=== PATIENT | female | born 1940 | race Caucasian/White ===

== ENCOUNTER 2018-02-03 21:54 | Inpatient (IN) ==
[2018-02-03 23:58] LABS: Basophils # (Auto) 0 K/mcL (0.0-0.3); Basophils % (Auto) 0.4 % (0.0-2.0); Eosinophils # (Auto) 0.2 K/mcL (0.0-0.7); Eosinophils % (Auto) 2.5 % (0.0-7.0); Lymphocytes # (Auto) 0.9 K/mcL (1.5-4.8); Lymphocytes % (Auto) 11.1 % (15.5-49.0); Mean Cell Volume 89.8 fL (80.0-100.0); Mean Corpuscular HGB Conc 32.7 g/dL (31.0-36.0); Mean Corpuscular Hemoglobin 29.4 pg (26.0-34.0); Monocytes # (Auto) 0.5 K/mcL (0.1-0.9); Platelet Count 277 K/mcL (140-440); RBC 4.15 M/mcL (4.00-5.20); Red Cell Distribution Width 13.4 % (11.5-14.5)
[2018-02-04 00:11] LABS: ALT/SGPT 20 U/l (0-40); Albumin 3.8 gm/dL (3.2-5.2); Albumin/Globulin Ratio 1.7 (1.0-2.3); Alkaline Phosphatase 111 U/L (39-117); Appearance,Urine CLEAR; Bilirubin,Urine NEG (NEG); Blood Urea Nitrogen 16 mg/dl (8-23); Color,Urine YELLOW; Glucose,Urine (UA) NEGATIVE (NEG); Leukocyte Esterase,Urine NEG /uL (NEG); Protein,Urine NEG (NEG); Urine Blood NEG mg/dL (<0.03); Urobilinogen,Urine NEG (NEG)
[2018-02-04] MEDS ORDERED: ONDANSETRON 4 MG/2 ML VIAL IV PRN ×2 (00:29→17:12)
[2018-02-04] MEDS ORDERED: NALOXONE HCL 0.4 MG/ML VIAL IV PRN (00:29)
[2018-02-04] MEDS ORDERED: DEXTROSE 50% 50 ML VIAL IV PRN (00:29)
[2018-02-04] MEDS ORDERED: oxyCODONE HCL 5 MG TABLET PO PRN (00:29)
[2018-02-04] MEDS ORDERED: NACL 0.9% W/KCL 20MEQ 1,000 ML IV SCH (00:30)
[2018-02-04] MEDS: HEPARIN 5,000 UNIT/ML VIAL SQ SCH ×3 (00:50→22:03)
[2018-02-04] MEDS: HYDROmorphone 2 MG/ML VIAL IV PRN ×3 (01:53→22:20)
[2018-02-04] MEDS: 0.9 % SODIUM CHLORIDE 10 ML SYRINGE IV SCH ×3 (05:03→22:03)
[2018-02-04] MEDS: INSULIN LISPRO 1 UNIT/0.01 ML UNIT SQ SCH ×3 (05:03→16:25)
--- NOTE | 2018-02-04 07:30 | Emergency Department Note ---
Fall HPI - General Chief Complaint: Fall Stated Complaint: fall Time Seen by Provider: 02/03/18 22:45 Source: family, EMS Mode of arrival: EMS - History of Present Illness HPI Narrative: This patient tripped and fell this evening and injured her right hip. Did not hit her head denies neck pain no other symptoms. Her previous right hip replacement in with Dr. Wilder. - Related Data Allergies Allergy/AdvReac Type Severity Reaction Status Date / Time codeine AdvReac Intermediate Vomiting Verified 02/04/18 01:44 Review of Systems All systems ED: reviewed and negative except as stated. Fall PMH - Past Medical History Medical history: Reports: DM, hypertension - Social History smoking status: Never smoker Physical Exam She does have some tenderness about the right hip. Limitations: no limitations General appearance: alert Head: atraumatic Eye: Present: normal appearance ENT: normal exam Neck: Present: normal inspection Chest: Present: normal inspection Respiratory: Present: normal lung sounds bilaterally Cardiovascular: Present: regular rate, normal rhythm, normal heart sounds Abdominal: Present: soft. Absent: distention, tenderness Neurological: Present: alert Psychiatric: Present: normal affect, normal mood Skin: Present: warm, dry, intact Course Vital Signs Temperature 98.2 F 02/03/18 21:55 Pulse Rate 114 H 02/03/18 21:55 Respiratory Rate 19 02/03/18 21:55 Blood Pressure 160/76 02/03/18 21:55 Pulse Oximetry (%) 92 02/03/18 21:55 Temperature 98.2 F 02/04/18 04:00 Pulse Rate 109 H 02/04/18 05:27 Respiratory Rate 20 02/04/18 05:27 Blood Pressure 122/76 02/04/18 04:00 Pulse Oximetry (%) 93 02/04/18 05:27 Fall - MDM Narrative Medical decision making narrative: Patient's x-ray shows a periprosthetic fracture of the femur on the right side. - Lab Data Lab results reviewed: Yes I reviewed the patient's lab results. Result diagrams: 02/03/18 23:10 02/03/18 23:10 Lab Results 02/03/18 02/03/18 02/03/18 Range/Units 23:10 23:10 23:10 WBC 8.0 (4.5-11.0) K/mcL RBC 4.15 (4.00-5.20) M/mcL Hgb 12.2 (12.0-15.0) g/dL Hct 37.3 (36.0-48.0) % MCV 89.8 (80.0-100.0) fL MCH 29.4 (26.0-34.0) pg MCHC 32.7 (31.0-36.0) g/dL RDW 13.4 (11.5-14.5) % Plt Count 277 (140-440) K/mcL MPV 8.2 (7.4-10.4) fL Gran % 80.0 H (38.0-78.0) % Lymph % (Auto) 11.1 L (15.5-49.0) % [place]ila % (Auto) 6.0 (1.0-12.0) % Eos % (Auto) 2.5 (0.0-7.0) % Baso % (Auto) 0.4 (0.0-2.0) % Gran # 6.4 (1.8-8.0) K/mcL Lymph # (Auto) 0.9 L (1.5-4.8) K/mcL [place]ila # (Auto) 0.5 (0.1-0.9) K/mcL Eos # (Auto) 0.2 (0.0-0.7) K/mcL Baso # (Auto) 0 (0.0-0.3) K/mcL Sodium 133 (133-145) mmol/L Potassium 3.5 (3.3-5.1) mmol/L Chloride 96 (96-108) mmol/L Carbon Dioxide 26 (22-30) mmol/L Anion Gap 11.0 (8-16) BUN 16 (8-23) mg/dl Creatinine 0.8 (0.6-1.1) mg/dl GFR Calculation 70 Glucose 156 H (70-105) mg/dL Calcium 10.2 (8.6-10.4) mg/dl Total Bilirubin 0.3 (0.0-1.0) mg/dL AST 19 (0-37) U/l ALT 20 (0-40) U/l Alkaline Phosphatase 111 (39-117) U/L Total Protein 6.1 (5.9-8.4) gm/dL Albumin 3.8 (3.2-5.2) gm/dL Globulin 2.3 (2.2-3.7) gm/dL Albumin/Globulin Ratio 1.7 (1.0-2.3) Urine Color Yellow Urine Appearance Clear Urine pH 7.0 (5.0-9.0) Ur Specific [place] 1.010 (1.000-1.035) Urine Protein Neg (NEG) mg/dL Urine Glucose (UA) Negative (NEG) mg/dL Urine Ketones Neg (NEG) mg/dL Urine Occult Blood Neg (<0.03) mg/dL Urine Nitrate Neg (NEG) Urine Bilirubin Neg (NEG) mg/dL Urine Urobilinogen Neg (NEG) mg/dL Ur Leukocyte Esterase Neg (NEG) /uL Ur Culture Indicated? No - Radiology Data Radiology results reviewed: Yes I reviewed the patient's radiology results. Disposition Pt seen by [employer] CONSULTANT/PA only: No Clinical Impression: Hip fracture requiring operative repair Disposition: Xfer As Inpt ([facility]) Condition: Good
[2018-02-04] MEDS: DOCUSATE SODIUM 100 MG CAPSULE PO SCH ×2 (07:37→22:03)
--- NOTE | 2018-02-04 08:19 | XRay Report ---
HISTORY: Reason for Exam:pain with right hip injury FINDINGS: There is an acute obliquely oriented subtrochanteric fracture of the proximal right femur. There is mild angulation and up to 8 mm displacement. The right total hip prosthesis is well-positioned and there is no dislocation or reabsorption of bone around the hardware. Severe osteoarthritis is present in the left hip and there is severe degenerative disc disease and arthritis at L4-5 and L5-S1. IMPRESSION: Acute subtrochanteric fracture of the proximal right femur Interpreted and Authenticated by: Dewayne Washington 02/04/18
--- NOTE | 2018-02-04 08:21 | XRay Report ---
HISTORY: Reason for Exam:pre-op for hip fracture FINDINGS: Lungs are clear. The heart size and pulmonary vasculature are normal. Aorta is mildly tortuous. The mediastinum and roderick are otherwise normal. Arthritis is present in both shoulders as well as the thoracic spine. IMPRESSION: Normal exam Interpreted and Authenticated by: Dewayne Washington 02/04/18
--- NOTE | 2018-02-04 10:15 | Consultation ---
DATE OF CONSULTATION: 02/04/2018 IDENTIFICATION: The patient is a 77-year-old female. CHIEF COMPLAINT: Right periprosthetic femur fracture. Her complaints are, of course, pain and inability to stand and bear weight. HISTORY: The patient had a total hip arthroplasty on this right side by Dr. Ramsey in 2005 and did very well. Yesterday she had a non-syncopal fall, had immediate pain and inability to bear weight. She presented to the hospital, was evaluated by Dr. Gabriel Murray and radiographs have demonstrated a fracture in and about the prosthesis. She presently is at bed rest. Any motion causes significant pain, but she is generally comfortable when not moving and is in no acute distress. PAST MEDICAL HISTORY: Significant for hypertension and diabetes mellitus type 2. PAST SURGICAL HISTORY: Noncontributory to this problem. REVIEW OF SYSTEMS: Her 10-point review of systems has been negative. She has been in a generally good state of health. Her primary care physician is Dr. Moran. FAMILY HISTORY: Again, noncontributory to this problem at age 77. PHYSICAL EXAMINATION: GENERAL: Awake and alert. She is in no acute distress. HEAD: Normocephalic, atraumatic. EYES: PERRLA. Conjunctivae clear. ENT: Within normal limits. NECK: Supple without pain on range of motion. HEART: Regular. LUNGS: Clear bilaterally. ABDOMEN: Soft, nondistended and nontender. LOWER EXTREMITIES: Her right lower extremity is carefully positioned and any motion does produce pain. She does have seemingly normal motor and sensory function distally. She does not have excess edema, although she is heavy. Her weight is 220, BMI 40, and she is generally heavy but does not seem to have a lot of pitting edema bilaterally. Again, neurovascularly intact bilaterally. IMAGING: Radiographs demonstrate a fracture which is periprosthetic of the right femur. It involves the femoral shaft. There is a large lateral butterfly fragment, and this is an unstable fracture about this prosthesis. IMPRESSION: Comminuted right periprosthetic femur fracture. PLAN: We have reviewed treatment options with the patient. I do think that this is a fracture which is best managed with surgical intervention and stabilization. The goal, of course, would be to get her up and ambulatory again. We have reviewed the procedure risks, complications and limitations. She would like to proceed, and we will try and do this as soon as possible. SYL:hodan Job ID: [id number] Doc ID: [id number] Sreekanth Jimenez MD
--- NOTE | 2018-02-04 11:11 | Internal Med History&Physical ---
Medical - H&P: HPI Patient information: Note initiated : 02/04/18 at 11:08 am Service Date, if different from initiated Date: [] Patient: Maria De Jesus Lobo 77 y/o F admitted on 02/04/18 for fall ORIF Right Felicity Prosthetic Fracture. Chief Complaint: [] History of present illness: Ms. Lobo is a 77 year old Female with h/o dm, htn, hld, presented to the ER last night s/p mechanical fall The patient notes that she was trying to turn around and tripped and fell. She denies any injury to her head, denies any syncope or presyncope like symptoms, denies any palpitations before the fall. No loss of bowel bladder continence. After the fall she had severe pain in the right hip and thought she had broken something and therefore presented to the emergency room. The patient denies any headache fever cough chest pain shortness of breath nausea vomiting urinary symptoms or any other concerns before she had this fall. In the emergency room the patient had an x-ray done which showed a fracture of the right femur. The patient has a prosthesis already on the right side. Dr. Jimenez will be performing the surgery on this patient and had been notified by the emergency. Patient is being admitted to the hospitalist service. The patient notes that she has poor effort tolerance, has balance issues and uses a walker. The most she walks is outside her house to get her mail. Even then she gets short of breath and has to stop in between. She denies any chest pain or shortness of breath during these walks. The patient denies any acute edema feet but does have intermittent waxing and waning edema feet. The patient denies any history of heart failure, denies any history of heart attack strokes or kidney failure. She does have a history of diabetes but is not on insulin. She is not an active smoker. She has had surgeries done in the past and has had nausea postoperatively but no other acute complication. Denies any easy bruising or excessive bleeding at this time. HOme meds as per last recent visit to urgent care Medication Instructions Start Date Stop Date Generic Name NDC Provider ADULT ASPIRIN EC LOW STRENGTH 81 MG TBEC 2 po daily ASPIRIN 55853181587 Abbe Mary [facility] ADMINISTRATIVE ASSISTANT-C GLUCOPHAGE 500 MG TABS 1 po BID METFORMIN HCL [id number] Abbe Mary [facility] ADMINISTRATIVE ASSISTANT-C METOPROLOL SUCCINATE ER 50 MG [id number] 1 po qd METOPROLOL SUCCINATE [id number] Abbe Mary NP-C HYDROCHLOROTHIAZIDE 25 MG TABS 1 po qd HYDROCHLOROTHIAZIDE [id number] Abbe Mary NP-C KLOR-CON 10 10 MEQ CR-TABS All systems: reviewed and no additional remarkable complaints except as stated ( 10 Point review of system done, positive as per HPI rest is negative) Medical - H&P: PMH Medical history: DM HTN HLD BPPV Medical - H&P: Meds Allergies Allergy/AdvReac Type Severity Reaction Status Date / Time codeine AdvReac Intermediate Vomiting Verified 02/04/18 01:44 Medical - H&P: Exam - Constitutional Vitals: Temp Pulse Resp BP Pulse Ox 97.7 F 112 H 20 106/67 95 02/04/18 08:00 02/04/18 08:00 02/04/18 08:00 02/04/18 08:00 02/04/18 08:00 Exam: GENERAL: The patient is a well-developed, well-nourished in no apparent distress. Is alert and oriented x3. VITAL SIGNS: Reviewed and as noted elsewhere. HEENT: Head is normocephalic and atraumatic. Extraocular muscles are intact. Pupils are equal, round, and reactive to light. Nares appeared normal. Mouth appears any without lesions. Mucous membranes are moist. NECK: Normal to inspection, Supple, No lymphadenopathy or thyromegaly. LUNGS: Air entry equal on both sides, no wheezing, crackles or rhonchi noted. No accessory muscles of respiration HEART: Regular rate and rhythm normal, S1 and S2 heard, no Gallop, S3 or Rub Noted, No Gross murmur heard. ABDOMEN: Soft, nontender, and nondistended. Positive bowel sounds. No hepatosplenomegaly was noted. EXTREMITIES: No cyanosis, clubbing, rash, lesions or edema. NEUROLOGIC: Cranial nerves II through XII are grossly intact. Motor and Sensory System Grossly Intact PSYCHIATRIC: Normal affect, Normal Mood. Appropriate Behavior. SKIN: No ulceration or wounds noted, No jaundice, No rash noted. Medical - H&P: Reslt - Labs CBC & Chem 7: 02/03/18 23:10 02/03/18 23:10 Labs: Short CBC 02/03/18 Range/Units 23:10 WBC 8.0 (4.5-11.0) K/mcL Hgb 12.2 (12.0-15.0) g/dL Hct 37.3 (36.0-48.0) % Plt Count 277 (140-440) K/mcL BMP 02/03/18 23:10 Sodium 133 Potassium 3.5 Chloride 96 Carbon Dioxide 26 BUN 16 Creatinine 0.8 Glucose 156 H Calcium 10.2 Liver Function 02/03/18 Range/Units 23:10 Total Bilirubin 0.3 (0.0-1.0) mg/dL AST 19 (0-37) U/l ALT 20 (0-40) U/l Alkaline Phosphatase 111 (39-117) U/L Albumin 3.8 (3.2-5.2) gm/dL Urine 02/03/18 Range/Units 23:10 Urine Color Yellow Urine Appearance Clear Urine pH 7.0 (5.0-9.0) Ur Specific [place] 1.010 (1.000-1.035) Urine Protein Neg (NEG) mg/dL Urine Glucose (UA) Negative (NEG) mg/dL Medical - H&P: A/P - Narrative A/P Narrative: A/p Periprosthetic Fracture: Management as per ortho Pre Op eval: Stable EKG, left axis, lafb, sinus rhythm, no acute ST wave changes , CXR no acute changes. no acute cardiovascular instability. RCRI is 0, but pt does have HTN, DM (not on insulin), poor effort tolerance and advanced age, this would make her moderate to high risk, but there are no modifiable risk factors to address before this urgent/ emergent surgery. Reviewed her risks with her. Pt verbalized understanding. DM: hold oral meds, sidling scale insulin for now, monitor glucose HTN: Resume home bp meds after surgery, pt on hctz which needs to be held prior to surgery DVT - hep sq Diet npo for now Full code. Medical - H&P: Qual - VTE Deep Vein Thrombosis/Pulmonary Embolism Present on Admission: No
[2018-02-04] MEDS ORDERED: ceFAZolin 1 GM VIAL ONE (15:14)
[2018-02-04] MEDS ORDERED: ceFAZolin 1 GM VIAL IV SCH (15:15)
[2018-02-04] MEDS ORDERED: PROPOFOL 200 MG/20 ML VIAL IV ONE (15:45)
[2018-02-04] MEDS ORDERED: PHENYLEPHRINE 10 MG/ML VIAL IV ONE (15:45)
[2018-02-04] MEDS ORDERED: TRANEXAMIC ACID 1,000 MG/10 ML VIAL IV ONE ×2 (15:45→17:10)
[2018-02-04] MEDS ORDERED: GLYCOPYRROLATE 0.2 MG/ML VIAL IV ONE (15:45)
[2018-02-04] MEDS ORDERED: MIDAZOLAM 2 MG/2 ML VIAL IV ONE (15:45)
[2018-02-04] MEDS ORDERED: LIDOCAINE HCL/PF 100 MG/5 ML SYRINGE IV ONE (15:45)
[2018-02-04] MEDS ORDERED: ePHEDrine 50 MG/ML AMPUL IV ONE (15:45)
[2018-02-04] MEDS ORDERED: KETAMINE 100 MG/ML ML IV ONE (15:45)
[2018-02-04] MEDS ORDERED: fentaNYL 100 MCG/2 ML VIAL IV ONE (15:45)
[2018-02-04] MEDS ORDERED: GENTAMICIN SULFATE 800 MG/20 ML VIAL IR ONE (16:50)
[2018-02-04] MEDS ORDERED: IPRATROPIUM/ALBUTEROL 3 ML AMPUL.NEB NEB PRN (17:12)
[2018-02-04] MEDS ORDERED: fentaNYL 100 MCG/2 ML VIAL IV PRN (17:12)
[2018-02-04] MEDS ORDERED: MEPERIDINE 25 MG/ML SYRINGE IV PRN (17:12)
[2018-02-04] MEDS ORDERED: METHOCARBAMOL 1,000 MG/10 ML VIAL IV PRN (17:12)
[2018-02-04] MEDS ORDERED: ACETAMINOPHEN 1,000 MG/100 ML BOTTLE IV ONE (17:12)
[2018-02-04] MEDS ORDERED: LACTATED RINGERS 1,000 ML IV SCH (17:15)
[2018-02-04] MEDS ORDERED: HETASTARCH 6% 30 GM/500 ML BAG IV ONE (18:30)
[2018-02-04] MEDS ORDERED: traMADol 50 MG TABLET PO PRN (19:03)
--- NOTE | 2018-02-04 19:16 | Brief Operative Note ---
Date of procedure: 02/04/18 Pre-op diagnosis: periprosthetic femur fracutre Post-op diagnosis: same Procedure: orif Grafts/Implants: Yes Anesthesia: GETA Complications: none Surgeon: Sreekanth Jimenez Quality Control Tech Raw Materials: Chandra Childers Estimated blood loss (cc): 250 Specimens Removed/Pathology: none sent Condition: stable Disposition: PACU
[2018-02-05] MEDS: INSULIN LISPRO 1 UNIT/0.01 ML UNIT SQ SCH ×5 (01:08→21:36)
[2018-02-05] MEDS: 0.9 % SODIUM CHLORIDE 10 ML SYRINGE IV SCH ×3 (05:46→21:36)
--- NOTE | 2018-02-05 08:33 | Orthopedic Progress Note ---
Subjective Patient information: Note initiated : 02/05/18 at 8:30 am Service Date, if different from initiated Date: [] Patient: Maria De Jesus Lobo 77 y/o F admitted on 02/04/18 for fall ORIF Right Felicity Prosthetic Fracture. Chief Complaint: [S/P ORIF of right periprosthetic femur fx] Patient is doing well. No particular complaints. Denies any chest pain, SOA, or calf tenderness. Objective Vital signs: Vital Signs Temp Pulse Resp BP BP Pulse Ox 02/05/18 07:41 106 H 18 95 02/05/18 07:40 98.1 F 18 131/67 95 02/05/18 03:47 97.7 F 118 H 18 126/79 92 02/05/18 00:00 98.1 F 108 H 16 149/81 94 02/04/18 22:00 113 H 126/79 95 02/04/18 21:30 107 H 101/68 94 02/04/18 21:00 111 H 123/78 95 02/04/18 20:30 110 H 118/73 95 02/04/18 20:16 110 H 118/75 95 02/04/18 20:01 105 H 115/72 94 02/04/18 19:46 110 H 18 118/69 96 02/04/18 19:30 97.6 F 114 H 18 117/70 98 02/04/18 19:16 97.4 F 108 H 21 127/62 97 02/04/18 18:52 108 H 17 124/59 96 02/04/18 18:37 110 H 22 99/65 99 02/04/18 18:22 112 H 18 97/50 94 02/04/18 18:07 116 H 18 101/54 92 02/04/18 17:52 122 H 19 108/52 98 02/04/18 17:37 98.5 F 109 H 19 123/54 98 02/04/18 11:40 98.1 F 112 H 20 136/77 97 Intake and Output 02/04/18 02/05/18 02/05/18 21:59 05:59 13:59 Intake Total 2500 / 2500 100 / 100 Output Total 400 / 400 375 / 375 Balance 2099 / 2099 -275 / -275 Intake: IV 600 / 600 Oral 200 / 200 100 / 100 IV - Manual Only 1700 / 1700 Output: Urine Catheter Amount 150 / 150 350 / 350 Emesis 25 / 25 Estimated Blood Loss 250 / 250 Other: Weight 219 lb Intake & Output: Intake & Output 02/04/18 02/05/18 02/05/18 21:59 05:59 13:59 Intake Total 2500 / 2500 100 / 100 Output Total 400 / 400 375 / 375 Balance 2099 / 2099 -275 / -275 Weight 219 lb Intake: IV 600 / 600 Oral 200 / 200 100 / 100 IV - Manual Only 1700 / 1700 Output: Urine Catheter Amount 150 / 150 350 / 350 Emesis 25 / 25 Estimated Blood Loss 250 / 250 Incision: Yes healing, Yes clean and dry Incision clean and dry: Yes Dressing: Yes clean, Yes dry, Yes intact Weight bearing status: non (NWB on RLE) Neurological exam IM: Yes oriented X3, Yes motor sensory intact, Yes neurovascular intact Extremities exam IM: Yes neurovascular intact Additional Comments: Negative Izzy's sign bilaterally, no calf tenderness - Labs CBC & BMP: 02/03/18 23:10 02/03/18 23:10 Labs: 02/03/18 23:10 Hgb 12.2 Hct 37.3 Assessment and Plan (1) Hip fracture requiring operative repair Patient will remain NWB on the RLE for 6-8 weeks. Likely discharge to [facility] in 2 days. Status: Acute
[2018-02-05] MEDS: DOCUSATE SODIUM 100 MG CAPSULE PO SCH ×2 (08:50→21:35)
[2018-02-05] MEDS: HEPARIN 5,000 UNIT/ML VIAL SQ SCH ×2 (08:50→21:35)
[2018-02-05] MEDS: ACETAMINOPHEN 325 MG TABLET PO PRN ×3 (08:50→21:37)
[2018-02-05] MEDS: HYDROCHLOROTHIAZIDE 25 MG TABLET PO SCH (08:51)
[2018-02-05] MEDS: LOSARTAN 50 MG TABLET PO SCH (08:51)
[2018-02-05] MEDS: metFORMIN 500 MG TABLET PO SCH ×2 (08:51→17:35)
[2018-02-05] MEDS: LISINOPRIL 20 MG TABLET PO SCH (08:51)
--- NOTE | 2018-02-05 11:01 | Operative Note ---
DATE OF OPERATION: 02/04/2018 PREOPERATIVE DIAGNOSIS: Comminuted right periprosthetic hip/femur fracture. POSTOPERATIVE DIAGNOSIS: Comminuted right periprosthetic hip/femur fracture. OPERATION PROPOSED: Open reduction and internal fixation of periprosthetic femur fracture. OPERATION PERFORMED: Open reduction and internal fixation of periprosthetic femur fracture. OPERATING SURGEON: Sreekanth Jimenez M.D. FOUNTAIN PEN TURNER: Chandra Childers PA-C. INDICATIONS: This is an elderly lady with a comminuted fracture about a right hip prosthesis. We have elected to proceed with open reduction and internal fixation with a plate and screw, as well as a cable construct. OPERATION IN DETAIL: Informed consent was obtained. The patient was taken to the operating room where she was provided the appropriate anesthetic and prophylactic antibiotics. She was carefully positioned. Her right lower extremity was prepped sterilely. A lateral incision was performed. I dissected through the iliotibial band. The fascia of the vastus lateralis was scored. I dissected posteriorly on the muscle and then slipped a Carr retractor up and over the lateral aspect of the femur. Vascular perforators were coagulated. The lateral surface of the femur was exposed, exposing the fracture. The best possible reduction was performed, and I placed a bone holding clamp. I selected a lateral plate from [employer]. This was held into position, and again the bone holding clamp was applied around the plate. I placed a single distal screw in the plate, and then we worked proximally and placed several cables that were provisionally tightened. The reduction was again checked and the best possible reduction obtained. I tightened the cables. I placed additional distal locking screws. There were several unicortical screws placed at the level of the prosthesis. I placed four proximal cables that were tightened and locked into position. The wounds were irrigated extensively and closed with a 0 Vicryl running in the fascia of the vastus lateralis. IT band was also closed with a Stratafix suture. The skin was closed with 2-0 inverted and urban. The procedure was tolerated well. No complications. Estimated blood loss was 250 mL. GDD:hodan Job ID: [id number] Doc ID: [id number] Sreekanth Jimenez MD
--- NOTE | 2018-02-05 13:40 | Internal Med Progress Note ---
Medical - PN: Subj Patient information: Note initiated : 02/05/18 at 1:34 pm Service Date, if different from initiated Date: [] Patient: Maria De Jesus Lobo a 77 y/o F admitted on 02/04/18 for fall ORIF Right Felicity Prosthetic Fracture. Chief Complaint: [] Interval history: Ms. Lobo is a 77 year old Female with h/o dm, htn, hld, presented to the ER last night s/p mechanical fall The patient notes that she was trying to turn around and tripped and fell. She denies any injury to her head, denies any syncope or presyncope like symptoms, denies any palpitations before the fall. No loss of bowel bladder continence. After the fall she had severe pain in the right hip and thought she had broken something and therefore presented to the emergency room. The patient denies any headache fever cough chest pain shortness of breath nausea vomiting urinary symptoms or any other concerns before she had this fall. In the emergency room the patient had an x-ray done which showed a fracture of the right femur. The patient has a prosthesis already on the right side. Dr. Jimenez will be performing the surgery on this patient and had been notified by the emergency. Patient is being admitted to the hospitalist service. The patient notes that she has poor effort tolerance, has balance issues and uses a walker. The most she walks is outside her house to get her mail. Even then she gets short of breath and has to stop in between. She denies any chest pain or shortness of breath during these walks. The patient denies any acute edema feet but does have intermittent waxing and waning edema feet. The patient denies any history of heart failure, denies any history of heart attack strokes or kidney failure. She does have a history of diabetes but is not on insulin. She is not an active smoker. She has had surgeries done in the past and has had nausea postoperatively but no other acute complication. Denies any easy bruising or excessive bleeding at this time. 5/4 Seen and examined, sitting comfortably in the chair, daughter and granddaughter by the bedside. She has no acute complaints or concerns. She has pain at the site of surgery which is expected. Otherwise no other issues. She denies any chest pain shortness of breath nausea vomiting. She does note that she has having difficulty in moving her bowels and was using Metamucil at home. Pertinent ROS: Denies headache, dizziness Denies chest pain, palpitations Denies cough or shortness of breath Denies abdominal pain, nausea or vomiting. - Constitutional Vitals: Vital Signs Temp Pulse Resp BP Pulse Ox 98.7 F 106 H 18 121/76 95 02/05/18 11:55 02/05/18 07:41 02/05/18 11:55 02/05/18 11:55 02/05/18 11:55 Period Temp Pulse Resp BP Sys/Cuellar Pulse Ox Last 24 Hr 97.4 F-98.7 F 105-122 16-22 97-149/50-81 92-99 Intake and Output 02/04/18 02/05/18 02/05/18 21:59 05:59 13:59 Intake Total 2500 / 2500 100 / 100 1000 / 1000 Output Total 400 / 400 375 / 375 400 / 400 Balance 2100 / 2100 -275 / -275 600 / 600 Weight 219 lb Intake & Output: Intake & Output 02/04/18 02/05/18 02/05/18 21:59 05:59 13:59 Intake Total 2500 / 2500 100 / 100 1000 / 1000 Output Total 400 / 400 375 / 375 400 / 400 Balance 2100 / 2100 -275 / -275 600 / 600 Weight 219 lb Intake: IV 600 / 600 Oral 200 / 200 100 / 100 800 / 800 GI Tube Flush 200 / 200 IV - Manual Only 1700 / 1700 Output: Urine Catheter Amount 150 / 150 350 / 350 400 / 400 Emesis 25 / 25 Estimated Blood Loss 250 / 250 Other: Meal Lunch Percent of Meal Consumed 25% Feeding Ability Independent Exam: Constitutional; Afebrile, cooperative, alert, not in distress. Eyes- No icterus, , No periorbital swelling Ears- Ext ear normal, hearing normal to conversation. Neck- Midline trachea, supple Respiratory system: Air Entry equal on both sides, No crackles or wheezing, no rhonchi. CVS- Rate rhythm regular, S1,S2 heard, no gallop, no rub. 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 Medical - PN: Obj Da - Labs CBC & Chem 7: 02/03/18 23:10 02/03/18 23:10 Labs: Abnormal Lab Results 02/03/18 02/03/18 23:10 23:10 Gran % 80.0 H Lymph % (Auto) 11.1 L Lymph # (Auto) 0.9 L Glucose 156 H Meds: Medications Acetaminophen (Tylenol) 650 mg PO Q6HP PRN PRN Reason: PAIN/FEVER > 101 Last Admin: 02/05/18 08:50 Dose: 650 mg Dextrose (Dextrose 50%) 0 ml IV UD PRN PRN Reason: Hypoglycemia Diagnostic Test (Pha) (Accu-Chek) 1 each [facility] Docusate Sodium (Colace) 100 mg PO BID [facility] Last Admin: 02/05/18 08:50 Dose: 100 mg Heparin Sodium (Porcine) (Heparin) 5,000 unit SQ Q12 [facility] Last Admin: 02/05/18 08:50 Dose: 5,000 unit Hydrochlorothiazide (Oretic) 25 mg PO DAILY [facility] Last Admin: 02/05/18 08:51 Dose: 25 mg Hydromorphone HCl (Dilaudid) 0.5 - 1 mg IV Q2HP PRN PRN Reason: PAIN LEVEL > 6 Last Admin: 02/04/18 22:20 Dose: 0.5 mg Insulin Human Lispro (Humalog) 0 unit SQ [facility] PRN Reason: Protocol Lisinopril (Zestril) 20 mg PO DAILY [facility] Last Admin: 02/05/18 08:51 Dose: 20 mg Losartan Potassium (Cozaar) 50 mg PO DAILY [facility] Last Admin: 02/05/18 08:51 Dose: 50 mg [facility] Last Admin: 02/05/18 08:51 Dose: 500 mg Naloxone HCl (Narcan) 0.1 mg IV Q2MIN PRN PRN Reason: Opiate Reversal Ondansetron HCl (Zofran) 4 mg IV Q6HP PRN PRN Reason: Nausea And Vomiting Last Admin: 02/05/18 03:07 Dose: 4 mg Oxycodone HCl (Roxicodone) 5 mg PO Q4HP PRN PRN Reason: PAIN LEVEL 3-6 Sodium Chloride (Saline Flush) 10 ml IV Q8 [facility] Last Admin: 02/05/18 05:46 Dose: 10 ml Tramadol HCl (Ultram) 50 - 100 mg PO Q4-6HP PRN PRN Reason: Pain Medical - PN: A/P - Time Spent With Patient Total time spent is greater than 50% in coordination of care (as documented) at patient's floor/unit and/or counseling patient: - Narrative A/P Narrative: A/p Periprosthetic Fracture: Management as per ortho DM: Resume metformin, sliding scale insulin to continue glucose at goal. HTN: Pressure medication hydrochlorthiazide resume, blood pressure at goal. Continue same DVT - hep sq Diet carb consistent diet. Full code. Medical - PN: Qual - VTE Deep Vein Thrombosis/Pulmonary Embolism Present on Admission: No
[2018-02-05] MEDS: PSYLLIUM HUSK 6 GM PACKET PO SCH (13:58)
[2018-02-05] MEDS ORDERED: BENZOCAINE/MENTHOL 1 LOZENGE PO PRN (14:00)
[2018-02-05] MEDS ORDERED: BENZOCAINE/MENTHOL 1 LOZENGE PO ONE (14:06)
[2018-02-06] MEDS: ACETAMINOPHEN 325 MG TABLET PO PRN ×2 (05:46→18:34)
[2018-02-06] MEDS: 0.9 % SODIUM CHLORIDE 10 ML SYRINGE IV SCH ×3 (05:47→20:22)
[2018-02-06] MEDS: INSULIN LISPRO 1 UNIT/0.01 ML UNIT SQ SCH ×4 (08:00→20:21)
[2018-02-06] MEDS: metFORMIN 500 MG TABLET PO SCH ×2 (08:19→18:35)
[2018-02-06] MEDS: LISINOPRIL 20 MG TABLET PO SCH (08:19)
[2018-02-06] MEDS: LOSARTAN 50 MG TABLET PO SCH (08:19)
[2018-02-06] MEDS: HEPARIN 5,000 UNIT/ML VIAL SQ SCH ×2 (08:19→20:21)
[2018-02-06] MEDS: PSYLLIUM HUSK 6 GM PACKET PO SCH ×2 (08:19→09:00)
[2018-02-06] MEDS: HYDROCHLOROTHIAZIDE 25 MG TABLET PO SCH (08:19)
[2018-02-06] MEDS: DOCUSATE SODIUM 100 MG CAPSULE PO SCH ×2 (08:20→20:22)
--- NOTE | 2018-02-06 11:15 | Orthopedic Progress Note ---
Orthopedics - Auxillary Note - Subjective Patient Information: Note initiated : 02/06/18 at 11:14 am Service Date, if different from initiated Date: [] Patient: Maria De Jesus Lobo 77 y/o F admitted on 02/04/18 for fall ORIF Right Felicity Prosthetic Fracture. Chief Complaint: Mild to moderate pain bandages c/d/i nvi-distal Vital Signs Temp Pulse Resp BP BP Pulse Ox 02/06/18 08:00 97.9 F 18 113/60 96 02/06/18 04:00 98.8 F 103 H 20 148/73 91 02/05/18 23:27 98.2 F 112 H 20 127/70 93 02/05/18 20:00 98.3 F 115 H 22 153/73 97 02/05/18 15:50 99.1 F H 18 118/62 96 02/05/18 11:55 98.7 F 18 121/76 95 Intake and Output 02/05/18 02/06/18 02/06/18 21:59 05:59 13:59 Intake Total 520 / 520 300 / 300 Output Total 350 / 350 1250 / 1250 Balance 170 / 170 -950 / -950 Intake: Oral 120 / 120 300 / 300 GI Tube Flush 400 / 400 Output: Urine Catheter Amount 350 / 350 1250 / 1250 Other: Meal Dinner Percent of Meal Consumed 100% Feeding Ability Independent Stool Size Large Stool Color Brown Stool Consistency Soft # Bowel Movements 1 Weight 224 lb 8 oz s/p R femur ORIF for periprosthetic hip fx-stable mobilize with PT; tentative discharge for Thursday02/08/18
--- NOTE | 2018-02-06 13:00 | Internal Med Progress Note ---
Medical - PN: Subj Patient information: Note initiated : 02/06/18 at 12:59 pm Service Date, if different from initiated Date: [] Patient: Maria De Jesus Lobo a 77 y/o F admitted on 02/04/18 for fall ORIF Right Felicity Prosthetic Fracture. Chief Complaint: [] Interval history: Ms. Lobo is a 77 year old Female with h/o dm, htn, hld, presented to the ER last night s/p mechanical fall The patient notes that she was trying to turn around and tripped and fell. She denies any injury to her head, denies any syncope or presyncope like symptoms, denies any palpitations before the fall. No loss of bowel bladder continence. After the fall she had severe pain in the right hip and thought she had broken something and therefore presented to the emergency room. The patient denies any headache fever cough chest pain shortness of breath nausea vomiting urinary symptoms or any other concerns before she had this fall. In the emergency room the patient had an x-ray done which showed a fracture of the right femur. The patient has a prosthesis already on the right side. Dr. Jimenez will be performing the surgery on this patient and had been notified by the emergency. Patient is being admitted to the hospitalist service. The patient notes that she has poor effort tolerance, has balance issues and uses a walker. The most she walks is outside her house to get her mail. Even then she gets short of breath and has to stop in between. She denies any chest pain or shortness of breath during these walks. The patient denies any acute edema feet but does have intermittent waxing and waning edema feet. The patient denies any history of heart failure, denies any history of heart attack strokes or kidney failure. She does have a history of diabetes but is not on insulin. She is not an active smoker. She has had surgeries done in the past and has had nausea postoperatively but no other acute complication. Denies any easy bruising or excessive bleeding at this time. 5/4 Seen and examined, sitting comfortably in the chair, daughter and granddaughter by the bedside. She has no acute complaints or concerns. She has pain at the site of surgery which is expected. Otherwise no other issues. She denies any chest pain shortness of breath nausea vomiting. She does note that she has having difficulty in moving her bowels and was using Metamucil at home 02/06 Patient seen and examined, lying comfortably in bed. Family by the bedside. No acute complaints or concerns no acute overnight events. Pain reasonably well -controlled. She had a bowel movement today.. Pertinent ROS: Denies headache, dizziness Denies chest pain, palpitations Denies cough or shortness of breath Denies abdominal pain, nausea or vomiting. - Constitutional Vitals: Vital Signs Temp Pulse Resp BP Pulse Ox 97.9 F 103 H 18 113/60 96 02/06/18 08:00 02/06/18 04:00 02/06/18 08:00 02/06/18 08:00 02/06/18 08:00 Period Temp Pulse Resp BP Sys/Cuellar Pulse Ox Last 24 Hr 97.9 F-99.1 F 103-115 18-22 113-153/60-73 91-97 Intake and Output 02/05/18 02/06/18 02/06/18 21:59 05:59 13:59 Intake Total 520 / 520 300 / 300 Output Total 350 / 350 1250 / 1250 Balance 170 / 170 -950 / -950 Weight 224 lb 8 oz Intake & Output: Intake & Output 02/05/18 02/06/18 02/06/18 21:59 05:59 13:59 Intake Total 520 / 520 300 / 300 Output Total 350 / 350 1250 / 1250 Balance 170 / 170 -950 / -950 Weight 224 lb 8 oz Intake: Oral 120 / 120 300 / 300 GI Tube Flush 400 / 400 Output: Urine Catheter Amount 350 / 350 1250 / 1250 Other: Meal Dinner Percent of Meal Consumed 100% Feeding Ability Independent Stool Size Large Stool Color Brown Stool Consistency Soft # Bowel Movements 1 Exam: Constitutional; Afebrile, cooperative, alert, not in distress. Eyes- No icterus, , No periorbital swelling Ears- Ext ear normal, hearing normal to conversation. Neck- Midline trachea, supple Respiratory system: Air Entry equal on both sides, No crackles or wheezing, no rhonchi. CVS- Rate rhythm regular, S1,S2 heard, no gallop, no rub. Abdomen- Soft nontender abdomen, no organomegaly, no tenderness, no guarding or rigidity, FAITH DOCTOR- AOOx3, moving all extremities, no gross focal deficit noted. Medical - PN: Obj Da - Labs CBC & Chem 7: 02/03/18 23:10 02/03/18 23:10 Labs: Abnormal Lab Results 02/03/18 02/03/18 23:10 23:10 Gran % 80.0 H Lymph % (Auto) 11.1 L Lymph # (Auto) 0.9 L Glucose 156 H Meds: Medications Acetaminophen (Tylenol) 650 mg PO Q6HP PRN PRN Reason: PAIN/FEVER > 101 Last Admin: 02/06/18 05:46 Dose: 650 mg Dextrose (Dextrose 50%) 0 ml IV UD PRN PRN Reason: Hypoglycemia Diagnostic Test (Pha) (Accu-Chek) 1 each [facility] Last Admin: 02/06/18 08:20 Dose: 1 each Docusate Sodium (Colace) 100 mg PO BID [facility] Last Admin: 02/06/18 08:20 Dose: 100 mg Heparin Sodium (Porcine) (Heparin) 5,000 unit SQ Q12 [facility] Last Admin: 02/06/18 08:19 Dose: 5,000 unit Hydrochlorothiazide (Oretic) 25 mg PO DAILY [facility] Last Admin: 02/06/18 08:19 Dose: 25 mg Hydromorphone HCl (Dilaudid) 0.5 - 1 mg IV Q2HP PRN PRN Reason: PAIN LEVEL > 6 Last Admin: 02/04/18 22:20 Dose: 0.5 mg Insulin Human Lispro (Humalog) 0 unit SQ [facility] PRN Reason: Protocol Last Admin: 02/05/18 21:36 Dose: 1 unit Lisinopril (Zestril) 20 mg PO DAILY [facility] Last Admin: 02/06/18 08:19 Dose: 20 mg Losartan Potassium (Cozaar) 50 mg PO DAILY [facility] Last Admin: 02/06/18 08:19 Dose: 50 mg [facility] Last Admin: 02/06/18 08:19 Dose: 500 mg Naloxone HCl (Narcan) 0.1 mg IV Q2MIN PRN PRN Reason: Opiate Reversal Ondansetron HCl (Zofran) 4 mg IV Q6HP PRN PRN Reason: Nausea And Vomiting Last Admin: 02/05/18 03:07 Dose: 4 mg Oxycodone HCl (Roxicodone) 5 mg PO Q4HP PRN PRN Reason: PAIN LEVEL 3-6 Psyllium Hydrophilic Mucilloid (Metamucil) 6 gm PO DAILY [facility] Last Admin: 02/06/18 08:19 Dose: 6 gm Sodium Chloride (Saline Flush) 10 ml IV Q8 [facility] Last Admin: 02/06/18 05:47 Dose: 10 ml Throat Lozenges (Cepacol) 1 lozenge PO PRN PRN PRN Reason: Sore Throat Tramadol HCl (Ultram) 50 - 100 mg PO Q4-6HP PRN PRN Reason: Pain Medical - PN: A/P - Time Spent With Patient Total time spent is greater than 50% in coordination of care (as documented) at patient's floor/unit and/or counseling patient: - Narrative A/P Narrative: A/p Periprosthetic Fracture: Management as per ortho DM: Resume metformin, sliding scale insulin to continue glucose at goal. HTN: Pressure medication hydrochlorthiazide resume, blood pressure at goal. Continue same DVT - hep sq Diet carb consistent diet. Full code. No change in treatment plan. Anticipate discharge on Thursday continue physical therapy as per Ortho recommendations Medical - PN: Qual - VTE Deep Vein Thrombosis/Pulmonary Embolism Present on Admission: No
[2018-02-07] MEDS: ACETAMINOPHEN 325 MG TABLET PO PRN ×3 (05:22→16:53)
[2018-02-07] MEDS: 0.9 % SODIUM CHLORIDE 10 ML SYRINGE IV SCH ×3 (05:24→20:12)
[2018-02-07] MEDS: INSULIN LISPRO 1 UNIT/0.01 ML UNIT SQ SCH ×3 (08:28→20:11)
[2018-02-07] MEDS: PSYLLIUM HUSK 6 GM PACKET PO SCH (08:28)
[2018-02-07] MEDS: LOSARTAN 50 MG TABLET PO SCH (08:28)
[2018-02-07] MEDS: metFORMIN 500 MG TABLET PO SCH (08:28)
[2018-02-07] MEDS: DOCUSATE SODIUM 100 MG CAPSULE PO SCH ×2 (08:28→20:12)
[2018-02-07] MEDS: HYDROCHLOROTHIAZIDE 25 MG TABLET PO SCH (08:28)
[2018-02-07] MEDS: HEPARIN 5,000 UNIT/ML VIAL SQ SCH (08:29)
[2018-02-07 09:55] LABS: Basophils # (Auto) 0 K/mcL (0.0-0.3); Basophils % (Auto) 0.3 % (0.0-2.0); Eosinophils # (Auto) 0.1 K/mcL (0.0-0.7); Eosinophils % (Auto) 1.8 % (0.0-7.0); Granulocytes % (Auto) 75.5 % (38.0-78.0); Lymphocytes # (Auto) 1.4 K/mcL (1.5-4.8); Lymphocytes % (Auto) 17.8 % (15.5-49.0); Mean Cell Volume 89.8 fL (80.0-100.0); Mean Corpuscular HGB Conc 33.1 g/dL (31.0-36.0); Mean Corpuscular Hemoglobin 29.7 pg (26.0-34.0); Monocytes # (Auto) 0.4 K/mcL (0.1-0.9); Monocytes % (Auto) 4.6 % (1.0-12.0); Platelet Count 230 K/mcL (140-440); RBC 3.04 M/mcL (4.00-5.20); Red Cell Distribution Width 13.5 % (11.5-14.5)
[2018-02-07 10:22] LABS: ALT/SGPT 36 U/l (0-40); Albumin/Globulin Ratio 1.4 (1.0-2.3); Alkaline Phosphatase 86 U/L (39-117); Bilirubin,Direct < 0.2 mg/dL (0.0-0.3); Blood Urea Nitrogen 14 mg/dl (8-23); Gamma Glutamyl Transpeptidase 19 U/L (5-36); Uric Acid 5.6 mg/dL (2.5-8.0)
--- NOTE | 2018-02-07 10:28 | Internal Med Progress Note ---
Medical - PN: Subj Patient information: Note initiated : 02/07/18 at 10:25 am Service Date, if different from initiated Date: [] Patient: Maria De Jesus Lobo a 77 y/o F admitted on 02/04/18 for fall ORIF Right Felicity Prosthetic Fracture. Chief Complaint: [] Interval history: Ms. Lobo is a 77 year old Female with h/o dm, htn, hld, presented to the ER last night s/p mechanical fall The patient notes that she was trying to turn around and tripped and fell. She denies any injury to her head, denies any syncope or presyncope like symptoms, denies any palpitations before the fall. No loss of bowel bladder continence. After the fall she had severe pain in the right hip and thought she had broken something and therefore presented to the emergency room. The patient denies any headache fever cough chest pain shortness of breath nausea vomiting urinary symptoms or any other concerns before she had this fall. In the emergency room the patient had an x-ray done which showed a fracture of the right femur. The patient has a prosthesis already on the right side. Dr. Jimenez will be performing the surgery on this patient and had been notified by the emergency. Patient is being admitted to the hospitalist service. The patient notes that she has poor effort tolerance, has balance issues and uses a walker. The most she walks is outside her house to get her mail. Even then she gets short of breath and has to stop in between. She denies any chest pain or shortness of breath during these walks. The patient denies any acute edema feet but does have intermittent waxing and waning edema feet. The patient denies any history of heart failure, denies any history of heart attack strokes or kidney failure. She does have a history of diabetes but is not on insulin. She is not an active smoker. She has had surgeries done in the past and has had nausea postoperatively but no other acute complication. Denies any easy bruising or excessive bleeding at this time. 5/4 Seen and examined, sitting comfortably in the chair, daughter and granddaughter by the bedside. She has no acute complaints or concerns. She has pain at the site of surgery which is expected. Otherwise no other issues. She denies any chest pain shortness of breath nausea vomiting. She does note that she has having difficulty in moving her bowels and was using Metamucil at home 02/06 Patient seen and examined, lying comfortably in bed. Family by the bedside. No acute complaints or concerns no acute overnight events. Pain reasonably well -controlled. She had a bowel movement today.. \ 02/07 Pt seen examined, doing well, no complaints noted to be tachycardic, previous values too tachycardic no cp, sob, no dizziness Ekg is sinus tachy labs unremarkable tsh neg get CTA to evaluate for pe plan of care reviewed with pt Pertinent ROS: Denies headache, dizziness Denies chest pain, palpitations Denies cough or shortness of breath Denies abdominal pain, nausea or vomiting. - Constitutional Vitals: Vital Signs Temp Pulse Resp BP Pulse Ox 98.9 F 121 H 16 139/69 97 02/07/18 07:25 02/07/18 03:46 02/07/18 07:25 02/07/18 07:25 02/07/18 07:25 Period Temp Pulse Resp BP Sys/Cuellar Pulse Ox Last 24 Hr 98.2 F-99.0 F 113-126 -18 103-165/54-77 94-97 Intake and Output 02/06/18 02/07/18 02/07/18 21:59 05:59 13:59 Intake Total 800 / 800 250 / 250 Output Total 1175 / 1175 1500 / 1500 Balance -375 / -375 -1250 / -1250 Weight 224 lb 8 oz Intake & Output: Intake & Output 02/06/18 02/07/18 02/07/18 21:59 05:59 13:59 Intake Total 800 / 800 250 / 250 Output Total 1175 / 1175 1500 / 1500 Balance -375 / -375 -1250 / -1250 Weight 224 lb 8 oz Intake: Oral 250 / 250 GI Tube Flush 800 / 800 Output: Urine Catheter Amount 1100 / 1100 Uretheral (Pavon) 300 / 300 Void Amount 75 / 75 1500 / 1500 Other: Meal Dinner Percent of Meal Consumed 75% # Voids 1 Exam: Constitutional; Afebrile, cooperative, alert, not in distress. Eyes- No icterus, , No periorbital swelling Ears- Ext ear normal, hearing normal to conversation. Neck- Midline trachea, supple Respiratory system: Air Entry equal on both sides, No crackles or wheezing, no rhonchi. CVS- Rate tachcyardic rhythm regular, S1,S2 heard, no gallop, no rub. Abdomen- Soft nontender abdomen, no organomegaly, no tenderness, no guarding or rigidity, UNION STEWARD- AOOx3, moving all extremities, no gross focal deficit noted. Medical - PN: Obj Da - Labs CBC & Chem 7: 02/07/18 09:07 02/07/18 09:07 Labs: Abnormal Lab Results 02/07/18 02/07/18 09:07 09:07 RBC 3.04 L Hgb 9.0 L Hct 27.3 L Lymph # (Auto) 1.4 L Glucose 200 H Phosphorus 2.0 L AST 62 H Total Protein 5.1 L Albumin 3.0 L Globulin 2.1 L Meds: Medications Acetaminophen (Tylenol) 650 mg PO Q6HP PRN PRN Reason: PAIN/FEVER > 101 Last Admin: 02/07/18 05:22 Dose: 650 mg Dextrose (Dextrose 50%) 0 ml IV UD PRN PRN Reason: Hypoglycemia Diagnostic Test (Pha) (Accu-Chek) 1 each FS [facility] Last Admin: 02/07/18 08:27 Dose: 1 each Docusate Sodium (Colace) 100 mg PO BID [facility] Last Admin: 02/07/18 08:28 Dose: Not Given Heparin Sodium (Porcine) (Heparin) 5,000 unit SQ Q12 [facility] Last Admin: 02/07/18 08:29 Dose: 5,000 unit Hydrochlorothiazide (Oretic) 25 mg PO DAILY [facility] Last Admin: 02/07/18 08:28 Dose: 25 mg Hydromorphone HCl (Dilaudid) 0.5 - 1 mg IV Q2HP PRN PRN Reason: PAIN LEVEL > 6 Last Admin: 02/04/18 22:20 Dose: 0.5 mg Insulin Human Lispro (Humalog) 0 unit SQ [facility] PRN Reason: Protocol Last Admin: 02/07/18 08:28 Dose: Not Given Losartan Potassium (Cozaar) 50 mg PO DAILY [facility] Last Admin: 02/07/18 08:28 Dose: 50 mg [facility] Last Admin: 02/07/18 08:28 Dose: 500 mg Naloxone HCl (Narcan) 0.1 mg IV Q2MIN PRN PRN Reason: Opiate Reversal Ondansetron HCl (Zofran) 4 mg IV Q6HP PRN PRN Reason: Nausea And Vomiting Last Admin: 02/05/18 03:07 Dose: 4 mg Oxycodone HCl (Roxicodone) 5 mg PO Q4HP PRN PRN Reason: PAIN LEVEL 3-6 Psyllium Hydrophilic Mucilloid (Metamucil) 6 gm PO DAILY [facility] Last Admin: 02/07/18 08:28 Dose: Not Given Sodium Chloride (Saline Flush) 10 ml IV Q8 [facility] Last Admin: 02/07/18 05:24 Dose: 10 ml Throat Lozenges (Cepacol) 1 lozenge PO PRN PRN PRN Reason: Sore Throat Last Admin: 02/06/18 20:52 Dose: 1 lozenge Tramadol HCl (Ultram) 50 - 100 mg PO Q4-6HP PRN PRN Reason: Pain Medical - PN: A/P - Time Spent With Patient Total time spent is greater than 50% in coordination of care (as documented) at patient's floor/unit and/or counseling patient: - Narrative A/P Narrative: A/p Periprosthetic Fracture: Management as per ortho Tachycardia: Ekg is sinus tachy, labs stable, get CT Angio. DM: Resume metformin, sliding scale insulin to continue glucose at goal. HTN: bp stable, continue present plan. DVT - hep sq Diet carb consistent diet. Full code. No change in treatment plan. Anticipate discharge on Thursday continue physical therapy as per Ortho recommendations Medical - PN: Qual - VTE Deep Vein Thrombosis/Pulmonary Embolism Present on Admission: No
--- NOTE | 2018-02-07 10:58 | Orthopedic Progress Note ---
Orthopedics - Auxillary Note - Subjective Patient Information: Note initiated : 02/07/18 at 10:55 am Service Date, if different from initiated Date: [] Patient: Maria De Jesus Lobo 77 y/o F admitted on 02/04/18 for fall ORIF Right Felicity Prosthetic Fracture. Chief Complaint: mild pain bandages c/d/i nvi-distal Vital Signs Temp Pulse Resp BP BP Pulse Ox 02/07/18 07:25 98.9 F 16 139/69 97 02/07/18 03:46 98.2 F 121 H 18 165/77 95 02/07/18 00:00 99.0 F H 113 H 16 132/72 94 02/06/18 20:00 98.5 F 126 H 16 142/66 96 02/06/18 16:00 98.9 F 18 123/61 94 02/06/18 12:00 98.9 F 18 103/54 95 Intake and Output 02/06/18 02/07/18 02/07/18 21:59 05:59 13:59 Intake Total 800 / 800 250 / 250 350 / 350 Output Total 1175 / 1175 1500 / 1500 Balance -375 / -375 -1250 / -1250 350 / 350 Intake: Oral 250 / 250 GI Tube Flush 800 / 800 350 / 350 Output: Urine Catheter Amount 1100 / 1100 Uretheral (Pavon) 300 / 300 Void Amount 75 / 75 1500 / 1500 Other: Meal Dinner Percent of Meal Consumed 75% # Voids 1 Weight 224 lb 8 oz Laboratory Results - last 24 hr 02/07/18 02/07/18 09:07 09:07 WBC 8.0 RBC 3.04 L Hgb 9.0 L Hct 27.3 L MCV 89.8 MCH 29.7 MCHC 33.1 RDW 13.5 Plt Count 230 MPV 8.4 Gran % 75.5 Lymph % (Auto) 17.8 [place] % (Auto) 4.6 Eos % (Auto) 1.8 Baso % (Auto) 0.3 Gran # 6.0 Lymph # (Auto) 1.4 L [place] # (Auto) 0.4 Eos # (Auto) 0.1 Baso # (Auto) 0 Sodium 135 Potassium 3.3 Chloride 96 Carbon Dioxide 28 Anion Gap 11.0 BUN 14 Creatinine 0.7 GFR Calculation 82 Glucose 200 H Uric Acid 5.6 Calcium 9.4 Phosphorus 2.0 L Magnesium 1.6 Total Bilirubin 0.5 Direct Bilirubin < 0.2 GGT 19 AST 62 H ALT 36 Alkaline Phosphatase 86 Lactate Dehydrogenase 189 Total Protein 5.1 L Albumin 3.0 L Globulin 2.1 L Albumin/Globulin Ratio 1.4 Triglycerides 108 TSH 0.59 s/p R femur ORIF for felicity prosthetic hip fx-stable Mobilize with PT okay to discharge from ortho stand point. -f/u at [facility] in 2 weeks. -non-weightbearing on R LE -aquacel dressing for 7 days or daily dry dressing changes.
--- NOTE | 2018-02-07 14:41 | Cat Scan Report ---
CLINICAL INFORMATION: Reason for Exam:tachycardia, r/o pe COMPARISON: None TECHNIQUE: Axial images obtained through the chest. intravenous contrast administration was administered, and scanning was performed during pulmonary arterial phase. Sagittally and coronally reformatted images were obtained. MIP reformatted images. FINDINGS: There are several small pulmonary emboli in both lungs, involving second and third order branches. These are suboptimally visualized due to the timing of the image acquisition. Much of the contrast had already washed out of the pulmonary arteries, into the left heart and aorta. The main pulmonary arteries are normal. The heart size is within normal limits. There is no evidence of pneumonia or pleural effusion. No mass is present. A large amount calcified plaque is present in the left anterior descending coronary artery. There is milder involvement in the circumflex and right main coronary. The aorta is normal in caliber. IMPRESSION: Bilateral pulmonary emboli Dr. Vail was called with results Interpreted and Authenticated by: Dewayne Washington 02/07/18
[2018-02-07] MEDS: APIXABAN 5 MG TABLET PO SCH ×2 (16:53→20:11)
[2018-02-08] MEDS: ACETAMINOPHEN 325 MG TABLET PO PRN ×2 (01:56→08:50)
[2018-02-08] MEDS: 0.9 % SODIUM CHLORIDE 10 ML SYRINGE IV SCH (06:31)
[2018-02-08] MEDS: INSULIN LISPRO 1 UNIT/0.01 ML UNIT SQ SCH ×2 (07:19→11:36)
[2018-02-08] MEDS: PSYLLIUM HUSK 6 GM PACKET PO SCH (08:24)
[2018-02-08] MEDS: HYDROCHLOROTHIAZIDE 25 MG TABLET PO SCH (08:25)
[2018-02-08] MEDS: DOCUSATE SODIUM 100 MG CAPSULE PO SCH (08:25)
[2018-02-08] MEDS: APIXABAN 5 MG TABLET PO SCH (08:25)
[2018-02-08] MEDS: LOSARTAN 50 MG TABLET PO SCH (08:25)
--- NOTE | 2018-02-08 11:25 | Discharge Summary ---
Medical - DS: Prov Patient information: Note initiated : 02/08/18 at 11:21 am Service Date, if different from initiated Date: [] Patient: Maria De Jesus Lobo 77 y/o F admitted on 02/04/18 for fall ORIF Right Felicity Prosthetic Fracture. Chief Complaint: [] Date of admission: 02/04/18 00:33 Discharge date: 02/08/18 Primary care physician: Perla Moran Admitting clinician: Joe Vail Consults: 02/03/18 22:51 Consult to Physician [CONS] Stat Comment: Consulting Provider: Joe Vail Reason For Exam: Physician to Consult 02/04/18 07:39 Consult to Physician [CONS] Routine Comment: Consulting Provider: Sreekanth Jimenez Reason For Exam: Physician to Consult Discharging clinician: Joe Vail Medical - DS: Meds - Discharge Medications Prescriptions: Apixaban [Eliquis] 10 mg PO BID #12 tab Apixaban [Eliquis] 5 mg PO BID #60 tab Active and Home Medications: Home Medications Benazepril [Lotensin] 20 mg PO DAILY 02/04/18 [History Confirmed 02/04/18 Last Taken Unknown] Hydrochlorothiazide [Oretic] 25 mg PO DAILY 02/04/18 [History Confirmed Last Taken Unknown] Losartan [Cozaar] 50 mg PO DAILY 02/04/18 [History Confirmed 02/04/18 Last Taken Unknown] metFORMIN [Glucophage] 500 mg PO BIDCC 02/04/18 [History Confirmed 02/04/18 Last Taken Unknown] traMADol [Ultram] 50 - 100 mg PO Q4-6HP PRN 02/04/18 [History Confirmed Last Taken Unknown] Medical - DS: Hosp Hospital course: Ms. Lobo is a 77 year old Female with h/o dm, htn, hld, presented to the ER s/p mechanical fall The patient notes that she was trying to turn around and tripped and fell. She denies any injury to her head, denies any syncope or presyncope like symptoms, denies any palpitations before the fall. No loss of bowel bladder continence. After the fall she had severe pain in the right hip and thought she had broken something and therefore presented to the emergency room. The patient denies any headache fever cough chest pain shortness of breath nausea vomiting urinary symptoms or any other concerns before she had this fall. In the emergency room the patient had an x-ray done which showed a fracture of the right femur. The patient has a prosthesis already on the right side. Dr. Jimenez will be performing the surgery on this patient and had been notified by the emergency. Patient is being admitted to the hospitalist service. The patient notes that she has poor effort tolerance, has balance issues and uses a walker. The most she walks is outside her house to get her mail. Even then she gets short of breath and has to stop in between. She denies any chest pain or shortness of breath during these walks. The patient denies any acute edema feet but does have intermittent waxing and waning edema feet. The patient denies any history of heart failure, denies any history of heart attack strokes or kidney failure. She does have a history of diabetes but is not on insulin. She is not an active smoker. She has had surgeries done in the past and has had nausea postoperatively but no other acute complication. Denies any easy bruising or excessive bleeding at this time. 02/05 Seen and examined, sitting comfortably in the chair, daughter and granddaughter by the bedside. She has no acute complaints or concerns. She has pain at the site of surgery which is expected. Otherwise no other issues. She denies any chest pain shortness of breath nausea vomiting. She does note that she has having difficulty in moving her bowels and was using Metamucil at home 02/06 Patient seen and examined, lying comfortably in bed. Family by the bedside. No acute complaints or concerns no acute overnight events. Pain reasonably well -controlled. She had a bowel movement today.. 02/07 Pt seen examined, doing well, no complaints noted to be tachycardic, previous values too tachycardic no cp, sob, no dizziness Ekg is sinus tachy labs unremarkable tsh neg get CTA to evaluate for pe plan of care reviewed with pt 02/08 CTA done yesterday showed katina pe, started on Eliquis (s/p hip fracture so provoked PE) Pt is Major risks benefits of the medication discussed, all questions answered. pt will need treatment for another 6 months, longer if determined by PCP Pt stable for discharge. will be discharged to SNF Discharge diagnosis: HIp fracture, Pulmonary Embolus - Time Spent with Patient Total time spent providing and/or coordinating discharge services: Greater than 30 minutes Medical - DS: Exam - Constitutional Vitals: Vital Signs Temp Pulse Resp BP BP Pulse Ox 02/08/18 06:50 97.8 F 18 126/81 95 02/08/18 03:43 97.9 F 97 H 16 142/80 97 02/07/18 23:36 99.3 F H 108 H 22 131/64 96 02/07/18 20:00 97.9 F 116 H 24 H 124/70 95 02/07/18 15:58 98.9 F 18 144/63 98 02/07/18 12:00 98.5 F 18 107/56 97 Intake and Output 02/07/18 02/08/18 02/08/18 21:59 05:59 13:59 Intake Total 800 / 800 450 / 450 240 / 240 Output Total 1800 / 1800 751 / 751 450 / 450 Balance -1000 / -1000 -301 / -301 -210 / -210 Intake: Oral 800 / 800 450 / 450 240 / 240 Output: Void Amount 1800 / 1800 750 / 750 450 / 450 # of times incontinent of urine Other: Meal Breakfast Percent of Meal Consumed 100% Feeding Ability Independent # Voids 1 Weight 225 lb 8 oz Additional comments: Constitutional; Afebrile, cooperative, alert, not in distress. Eyes- No icterus, , No periorbital swelling Ears- Ext ear normal, hearing normal to conversation. Neck- Midline trachea, supple Respiratory system: Air Entry equal on both sides, No crackles or wheezing, no rhonchi. CVS- Rate mildly tachycardic, rhythm regular, S1,S2 heard, no gallop, no rub. Abdomen- Soft nontender abdomen, no organomegaly, no tenderness, no guarding or rigidity, [employer]- AOOx3, moving all extremities, no gross focal deficit noted. Medical - DS: A/P - Patient/Caregiver Discharge Instructions Activity: as per physical therapy ( DETERMINED BY ORTHO< PLEASE ASK THEM FOR ACTIVITY LEVEL) Diet: Consistent Carbohydrate Additional Instructions: Ambulation as per ortho, Take Eliquis 10mg bid x 6 more days Then Eliquis 5mg bid, for 6 months. If you notice blood, in stools or urine, black stools, or unexplained dizziness , please stop Eliquis and go to the ER or talk to your PCP Ot/pt as per ortho. Go to the ER if worsening symptoms, chest pain, shortness of breath, fever, Prescriptions: Apixaban [Eliquis] 10 mg PO BID #12 tab Apixaban [Eliquis] 5 mg PO BID #60 tab Other Amb Orders: OT Discharge Order Location: Determined By Patient - Follow up Plan Follow up with: Perla Moran MD [Primary Care Provider] - Disposition: Xfer SNF Prognosis: Fair Rehab Potential: Fair I certify that the patient requires SNF services: Yes Overall status at discharge: patient is progressing back to baseline Medical - DS: Qual - VTE Deep Vein Thrombosis/Pulmonary Embolism Present on Admission: No
--- NOTE | 2018-02-08 12:38 | Discharge Summary ---
Ortho Discharge - [facility] - Patient Instructions Diet: Consistent Carbohydrate Activity: non weight bearing Total Hip Protocol: Follow activity instructions as provided by Physical Therapy. Dressing Care: Silvasorb gel & gauze - change daily Patient Education: Apixaban (By mouth), Total Hip Replacement (DC) Additional Instructions: Discharge Instructions: Do the exercises at home that physical therapy gave you. Ambulation as per ortho. Wear comfortable clothing for your physical therapy. Take Eliquis 10mg bid x 6 more days Then Eliquis 5mg bid, for 6 months. If you notice blood, in stools or urine, black stools, or unexplained dizziness , please stop Eliquis and go to the ER or talk to your PCP Ot/pt as per ortho. Change dry gauze dressing with silvasorb daily after shower. To avoid constipation while taking any narcotic pain medication, take an over the counter stool softener/laxative. Use your Cryocuff or ice packs as directed, on for 20 minutes at a time throughout the day. This and elevation will help with pain and swelling. Call your physician for fevers above 100.5 or pain not controlled by medication. Your prescriptions are with your discharge information. Some medications were electronically transmitted to your pharmacy of choice. Go to the ER if worsening symptoms, chest pain, shortness of breath, fever. - Follow Up Plan Follow Up Appointments: Perla Moran MD [Primary Care Provider] - Disposition: Xfer SNF Prognosis: Good Rehab Potential: Fair I certify that the patient requires SNF services: Yes Overall status at discharge: patient is progressing back to baseline - Orders For Discharge Prescriptions: Apixaban [Eliquis] 10 mg PO BID #12 tab Apixaban [Eliquis] 5 mg PO BID #60 tab oxyCODONE HCL [Roxicodone] 5 mg PO Q4HP PRN #60 tab PRN Reason: Pain Level 3-6 Additional Discharge Orders: OT Discharge Order Location: Determined By Patient
[2018-02-09] MEDS ORDERED: metFORMIN 500 MG TABLET PO SCH (17:30)
== END 2018-02-08 13:45 | DRG 481 ==
LOC: ED 21:54 → MEDSUR 02-04 00:33
PROVIDERS: ADMIT Internal Medicine; ATTEND Internal Medicine